=== PATIENT | male | born 1995 | race African-American/Black ===

== ENCOUNTER 2025-05-13 21:36 | Emergency (ER) | payer OTHER ==
[~2025-05-13] VITALS: Ht 170.2 cm; Wt 84.1 kg
[2025-05-13 21:42] VITALS: BP 134/99; PULSE 69; RESP 17; TEMP 98.4; O2SAT 98
== END 2025-05-14 04:18 | disposition left against medical advice (07) ==
LOC: EMS 21:36
DX: F41.9 Anxiety disorder, unspecified (principal); Z53.21 Procedure and treatment not carried out due to patient leaving prior to being seen by health care provider
CPT/HCPCS: 93005